=== PATIENT | female | born 1995 | race Caucasian/White ===

== ENCOUNTER 2019-01-13 18:08 | Inpatient (IN) | payer OTHER ==
[2019-01-13 18:56] VITALS: BMI 28.2
--- NOTE | 2019-01-13 19:23 | HP ---
COWS - Scale Resting Pulse: 0= [place] 80 or Below Sweatin= Chills/Flushing Restless Observation: 1= Difficult to Sit Still Pupil Size: 0= Normal to Room Light Bone or Joint Aches: 1= Mild Discomfort Runny Nose/ Eye Tearin= Runny Nose/Eyes GI Upset > 30mins: 3= Vomiting/Diarrhea (x 4) Tremor Observation: 1= Tremor [place], Not Seen Yawning Observation: 1= 1-2x During Session Anxiety or Irritability: 2=Irritable/Anxious Goose Flesh Skin: 0=Smooth Skin COWS Score: 12 CIWA Score - Admission Criteria OASAS Guidelines: Admission for Medically Managed Detox: Requires at least one of the followin. CIWA greater than 12 2. Seizures within the past 24 hours 3. Delirium tremens within the past 24 hours 4. Hallucinations within the past 24 hours 5. Acute intervention needed for co occurring medical disorder 6. Acute intervention needed for co occurring psychiatric disorder 7. Severe withdrawal that cannot be handled at a lower level of care (continued vomiting, continued diarrhea, abnormal vital signs) requiring intravenous medication and/or fluids 8. Admission ROS [facility] Chief Complaint: heroin withdrawal symptoms Allergies/Adverse Reactions: Allergies Allergy/AdvReac Type Severity Reaction Status Date / Time No Known Drug Allergies Allergy Verified 01/13/19 18:47 SEAFOOD Allergy Severe Difficulty Uncoded 01/13/19 18:47 Breathing History of Present Illness: 23 yo female with hx heroin (nasal) and marijuana dependence is here seeking detox, reports attempted treatment at [facility] in the past once, but left AMA. Reports has been using heroin for about four years, currently using 25-30 bags, last use this morning. PMHX: Asthma Psych: bipolar, schizophrenia, ADHD ( non-compliant with treatment) Denies SI/HI Hx suicide attempt x3, with last attempt February 2017. Denies hx of seizures, blackouts, overdose. Exam Limitations: No Limitations - Ebola screening Have you traveled outside of the country in the last 21 days: No (N) Have you had contact with anyone from an Ebola affected area: No Do you have a fever: No - Review of Systems Constitutional: Chills, Changes in sleep, Unintentional Wgt. Loss (70 lbs in past four months) EENT: reports: Tearing, Nose Congestion Respiratory: reports: Cough, Other (SOB when nodding out from heroin use) GI: reports: Nausea, Poor Appetite, Poor Fluid Intake, Vomiting, Abdominal cramping : reports: No Symptoms Reported Musculoskeletal: reports: Back Pain Integumentary: reports: Pruritus Neuro: reports: No Symptoms reported Endocrine: reports: Increased Thirst Hematology: reports: No Symptoms Reported Psychiatric: reports: Orientated x3, Anxious Other Systems: Reviewed and Negative Patient History - Patient Medical History Hx Anemia: No Hx Asthma: Yes Hx Chronic Obstructive Pulmonary Disease (COPD): No Hx Cancer: No Hx Cardiac Disorders: No Hx Congestive Heart Failure: No Hx Hypertension: No Hx Hypercholesterolemia: No Hx Pacemaker: No HX Cerebrovascular Accident: No Hx Seizures: No Hx Dementia: No Hx Diabetes: No Hx Gastrointestinal Disorders: No Hx Liver Disease: No Hx Genitourinary Disorders: No Hx Sexually Transmitted Disorders: Yes (gonorrhea and chlamydia ) Hx Renal Disease (ESRD): No Hx Thyroid Disease: No Hx Human Immunodeficiency Virus (HIV): No Hx Hepatitis C: No Hx Depression: Yes Hx Suicide Attempt: Yes (Hx suicide attempt x3, with last attempt February 2017. ) Hx Bipolar Disorder: Yes Hx Schizophrenia: Yes - Patient Surgical History Past Surgical History: No - PPD History Previous Implant?: No - Reproductive History Patient is a Female of Child Bearing Age (11 -55 yrs old): Yes Last Menstrual Period: 09/28/18 Patient : No - Smoking Cessation Smoking history: Current every day smoker Have you smoked in the past 12 months: Yes Aproximately how many cigarettes per day: 20 Hx Chewing Tobacco Use: No Initiated information on smoking cessation: Yes 'Breaking Loose' booklet given: 01/13/19 - Substance & Tx. History Hx Alcohol Use: No Hx Substance Use: No Substance Use Type: Heroin Hx Substance Use Treatment: Yes ([facility] left AMA after 24 hours ) - Substances abused Heroin Substance route: Inhalation Frequency: Daily Amount used: 25-30 BAGS Age of first use: 20 Date of last use: 01/13/19 Marijuana/Hashish Substance route: Smoking Frequency: Daily Amount used: 7-8 BLUNTS Age of first use: 12 Date of last use: 01/12/19 Family Disease History - Family Disease History Family History: Denies Admission Physical Exam BHS - Vital Signs Vital Signs: Vital Signs - 24 hr 01/13/19 18:41 Temperature 98.6 F Pulse Rate 68 Respiratory 18 Rate Blood Pressure 114/59 L - Physical General Appearance: Yes: Nourished, Disheveled, Mild Distress, Sweating, Anxious HEENTM: Yes: EOMI, Hearing grossly Normal, Normal ENT Inspection, Pharynx Normal , Other (dry mucous membranes) Respiratory: Yes: Chest Non-Tender, Lungs Clear, No Respiratory Distress, No Accessory Muscle Use, Wheezing Neck: Yes: Within Normal Limits Breast: Yes: Breast Exam Deferred Cardiology: Yes: Regular Rhythm, Murmur Abdominal: Yes: Normal Bowel Sounds, Non Tender, Flat, Soft Genitourinary: Yes: Within Normal Limits Back: Yes: Normal Inspection Musculoskeletal: Yes: full range of Motion, Gait Steady, Pelvis Stable, Back pain Extremities: Yes: Normal Capillary Refill, Normal Inspection, Normal Range of Motion, Non-Tender 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: 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: 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, Fully Oriented, Alert, Motor Strength 5/5, Depressed Affect Integumentary: Yes: Normal Color, Warm, Diaphoresis Lymphatic: Yes: Within Normal Limits - Diagnostic (1) Opioid dependence with withdrawal Current Visit: Yes Status: Acute (2) Nicotine dependence Current Visit: Yes Status: Acute Qualifiers: Nicotine product type: cigarettes (3) Asthma Current Visit: Yes Status: Acute Qualifiers: Asthma severity: mild Asthma persistence: intermittent Asthma complication type: uncomplicated Qualified Code(s): J45.20 - Mild intermittent asthma, uncomplicated (4) Wheezing Current Visit: Yes Status: Acute (5) Cannabis dependence Current Visit: Yes Status: Acute Cleared for Admission S - Detox or Rehab [facility] Level of Care: Medically Managed Detox Regimen/Protocol: Methadone Breathalyzer - Breathalyzer Breathalyzer: 0 POC Urine test - Test device test lot number: [id number] Expiration date: 08/28/20 - Control test control: Yes - Result Urine Test Results: Negative - NO line present Urine Drug Screen - Test Device Lot number: [id number] Expiration date: 08/28/20 - Control Is test valid?: Yes - Results Drug screen NEGATIVE: Yes Urine drug screen results: THC-Marijuana, FEN-Fentanyl, MOP-Opiates, MTD- Methadone Inpatient Rehab Admission - Rehab Decision to Admit Inpatient rehab admission?: No
[2019-01-13] MEDS ORDERED: BISMUTH SUBSALICYLATE 524 MG/30 ML UD PO PRN (19:36)
[2019-01-13] MEDS ORDERED: ALBUTEROL SO4 8 GM HFA INHALER IH PRN (19:36)
[2019-01-13] MEDS ORDERED: P-EPHED 60MG/TRIPROLIDI 2.5MG TABLET PO PRN (19:36)
[2019-01-13] MEDS ORDERED: MAGNESIUM CITRATE 300 ML BOTTLE PO PRN (19:36)
[2019-01-13] MEDS ORDERED: MAGNESIUM HYDROX 2400MG/30ML ORAL SUSPENSION 30 ML CUP PO PRN (19:36)
[2019-01-13] MEDS ORDERED: cloNIDine HCL 0.1 MG TABLET PO PRN (19:36)
[2019-01-13] MEDS ORDERED: ONDANSETRON *ODT* 4 MG TABLET SL PRN (19:36)
[2019-01-13] MEDS ORDERED: MAG HYDROX/AL HYDROX/SIMETH 30 ML UNIT-DOSE CUP PO PRN (19:36)
[2019-01-13] MEDS ORDERED: MELATONIN 5 MG TABLETS PO PRN (19:36)
[2019-01-13] MEDS ORDERED: MENTHOL/PHENOL 1 EACH UD MM PRN (19:36)
[2019-01-13] MEDS ORDERED: IBUPROFEN 400 MG TABLET (FP) PO PRN (19:36)
[2019-01-13] MEDS ORDERED: METHOCARBAMOL 500 MG TABLET PO PRN (19:36)
[2019-01-13] MEDS ORDERED: ACETAMINOPHEN 325 MG TABLET (FP) PO PRN ×2 (19:36)
[2019-01-13] MEDS ORDERED: guaiFENesin 200 MG/10 ML 10 ML UNIT-DOSE CUPS PO PRN (19:36)
[2019-01-13] MEDS ORDERED: ALBUTEROL SO4 0.083% IH SOL 2.5 MG/3 ML VIAL.NEB. NEB PRN (19:41)
[2019-01-13] MEDS ORDERED: QUEtiapine FUMARATE 50 MG TABLET PO ONE (22:00)
[2019-01-13] MEDS ORDERED: diazePAM 5 MG TABLET PO SCH (22:00)
[2019-01-13] MEDS: THIAMINE HCL 100 MG TABLET (FP) PO SCH (22:30)
[2019-01-13] MEDS ORDERED: METHADONE HCL 10 MG TABLET (FOR DETOX USE ONLY) PO ONE (23:00)
[2019-01-14] MEDS: NICOTINE POLACRILEX 2 MG GUM BUC PRN ×4 (08:49→19:44)
[2019-01-14] MEDS ORDERED: METHADONE HCL 10 MG TABLET (FOR DETOX USE ONLY) PO ONE (10:00)
[2019-01-14] MEDS: diazePAM 5 MG TABLET PO PRN ×2 (10:32→21:39)
[2019-01-14] MEDS: PRENATAL VITAMINS W/ FOLIC ACID TABLET (FP) PO SCH (10:32)
[2019-01-14] MEDS: NICOTINE 14 MG/24 HOURS TOPICAL PATCH TD SCH (10:33)
[2019-01-14 10:56] LABS: HEMOGLOBIN 11.9 GM/dL (10.7-15.3); MCH 30.6 pg (25.7-33.7); MCHC 34.1 g/dl (32.0-36.0); MEAN CELL VOLUME 89.8 fl (80-96); MEAN PLT VOLUME 7.7 fl (7.5-11.1); PLATELET COUNT 255 K/MM3 (134-434); RDW 14.4 % (11.6-15.6); WHITE BLOOD COUNT 4.9 K/mm3 (4.0-10.0)
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
[2019-01-14] MEDS: QUEtiapine FUMARATE 50 MG TABLET PO SCH (12:10)
--- NOTE | 2019-01-14 12:16 | EKG ---
Test Reason : Blood Pressure : / mmHG Vent. Rate : 063 BPM Atrial Rate : 063 BPM P-R Int : 154 ms QRS Dur : 092 ms QT Int : 412 ms P-R-T Axes : 038 049 037 degrees QTc Int : 421 ms NORMAL SINUS RHYTHM NORMAL ECG NO PREVIOUS ECGS AVAILABLE Confirmed by CHANNING MCGARRY MD ([id number]) on 01/14/2019 12:16:31 PM Referred By: Confirmed By:CHANNING MCGARRY MD
[2019-01-14 12:22] LABS: ALBUMIN 3.2 g/dl (3.4-5.0); ALK PHOS 56 U/L (45-117); ANION GAP 5 MMOL/L (8-16); BILIRUBIN,TOTAL 0.4 mg/dL (0.2-1); BLOOD UREA NITROGEN 6 mg/dL (7-18); CALCIUM 8.2 mg/dL (8.5-10.1); CHLORIDE 107 mmol/L (98-107); CO2 28 mmol/L (21-32); CREATININE 0.5 mg/dL (0.55-1.3); GLUCOSE,RANDOM 79 mg/dL (74-106); POTASSIUM 4.1 mmol/L (3.5-5.1); SGOT/AST 18 U/L (15-37); SGPT/ALT 14 U/L (13-61); SODIUM 141 mmol/L (136-145); TOT PROT 6.1 g/dl (6.4-8.2)
--- NOTE | 2019-01-14 13:12 | PN ---
BHS COWS - Scale Resting Pulse: 0= [place] 80 or Below Sweatin= Chills/Flushing Restless Observation: 1= Difficult to Sit Still Pupil Size: 0= Normal to Room Light Bone or Joint Aches: 1= Mild Discomfort Runny Nose/ Eye Tearin= Nasal Congestion GI Upset > 30mins: 1= Stomach Cramp Tremor Observation of Outstretched Hands: 1= Tremor [place], Not Seen Yawning Observation: 1= 1-2x During Session Anxiety or Irritability: 2=Irritable/Anxious Goose Flesh Skin: 0=Smooth Skin COWS Score: 9 BHS Progress Note (SOAP) Subjective: report anxious because lack of psychotropic medication trouble sleep at night poor concentration Objective: 01/14/19 13:10 Vital Signs Temperature 96.6 F L 01/14/19 09:45 Pulse Rate 68 01/14/19 09:45 Respiratory Rate 18 01/14/19 09:45 Blood Pressure 101/56 L 01/14/19 09:45 O2 Sat by Pulse Oximetry (%) Laboratory Last Values WBC 4.9 K/mm3 (4.0-10.0) 01/14/19 07:00 RBC 3.90 M/mm3 (3.60-5.2) 01/14/19 07:00 Hgb 11.9 GM/dL (10.7-15.3) 01/14/19 07:00 Hct 35.0 % (32.4-45.2) 01/14/19 07:00 MCV 89.8 fl (80-96) 01/14/19 07:00 MCH 30.6 pg (25.7-33.7) 01/14/19 07:00 MCHC 34.1 g/dl (32.0-36.0) 01/14/19 07:00 RDW 14.4 % (11.6-15.6) 01/14/19 07:00 Plt Count 255 K/MM3 (134-434) 01/14/19 07:00 MPV 7.7 fl (7.5-11.1) 01/14/19 07:00 Sodium 141 mmol/L (136-145) 01/14/19 07:00 Potassium 4.1 mmol/L (3.5-5.1) 01/14/19 07:00 Chloride 107 mmol/L (98-107) 01/14/19 07:00 Carbon Dioxide 28 mmol/L (21-32) 01/14/19 07:00 Anion Gap 5 MMOL/L (8-16) L 01/14/19 07:00 BUN 6 mg/dL (7-18) L 01/14/19 07:00 Creatinine 0.5 mg/dL (0.55-1.3) L 01/14/19 07:00 Creat Clearance w eGFR 151.58 (>60) 01/14/19 07:00 Random Glucose 79 mg/dL (74-106) 01/14/19 07:00 Calcium 8.2 mg/dL (8.5-10.1) L 01/14/19 07:00 Total Bilirubin 0.4 mg/dL (0.2-1) 01/14/19 07:00 AST 18 U/L (15-37) 01/14/19 07:00 ALT 14 U/L (13-61) 01/14/19 07:00 Alkaline Phosphatase 56 U/L (45-117) 01/14/19 07:00 Total Protein 6.1 g/dl (6.4-8.2) L 01/14/19 07:00 Albumin 3.2 g/dl (3.4-5.0) L 01/14/19 07:00 RPR Titer Nonreactive (NONREACTIVE) 01/14/19 07:00 lab noted Assessment: 01/14/19 13:12 withdrawal sx 01/14/19 13:12 schizophrenia Plan: continue detox seroquel
[2019-01-14] MEDS ORDERED: hydrOXYzine PAMOATE 50 MG CAPSULE (FP) PO PRN (19:57)
[2019-01-14] MEDS: THIAMINE HCL 100 MG TABLET (FP) PO SCH (21:39)
[2019-01-14] MEDS ORDERED: QUEtiapine FUMARATE 100 MG TABLET (FP) PO SCH (22:00)
[2019-01-15 09:30] VITALS: BP 101/64; PULSE 71; TEMP 96.9
[2019-01-15] MEDS ORDERED: diazePAM 5 MG TABLET PO SCH (10:00)
[2019-01-15] MEDS ORDERED: METHADONE HCL 10 MG TABLET (FOR DETOX USE ONLY) PO ONE (10:00)
[2019-01-15] MEDS: NICOTINE 14 MG/24 HOURS TOPICAL PATCH TD SCH (10:47)
[2019-01-15] MEDS: PRENATAL VITAMINS W/ FOLIC ACID TABLET (FP) PO SCH (10:47)
[2019-01-15] MEDS: QUEtiapine FUMARATE 50 MG TABLET PO SCH (10:47)
[2019-01-15] MEDS: NICOTINE POLACRILEX 2 MG GUM BUC PRN (10:48)
--- NOTE | 2019-01-15 13:30 | PN ---
BHS COWS - Scale Resting Pulse: 0= [place] 80 or Below Sweatin= No chills or Flushing Restless Observation: 0= Sits Still Pupil Size: 0= Normal to Room Light Bone or Joint Aches: 1= Mild Discomfort Runny Nose/ Eye Tearin= Nasal Congestion GI Upset > 30mins: 1= Stomach Cramp Tremor Observation of Outstretched Hands: 1= Tremor [place], Not Seen Yawning Observation: 0= None Anxiety or Irritability: 1=Feels Anxious/Irritable Goose Flesh Skin: 0=Smooth Skin COWS Score: 5 BHS Progress Note (SOAP) Subjective: pt states doing well with detox protocol O: Vital Signs - 24 hr 01/14/19 01/14/19 01/14/19 13:46 18:16 21:37 Temperature 97.2 F L 98.6 F 97.7 F Pulse Rate 69 66 64 Respiratory 18 18 18 Rate Blood Pressure 104/61 105/62 108/77 01/15/19 01/15/19 01/15/19 00:30 03:30 06:11 Temperature 97.6 F Pulse Rate 69 Respiratory 18 18 16 Rate Blood Pressure 97/57 L 01/15/19 01/15/19 06:30 09:29 Temperature 96.9 F L Pulse Rate 71 Respiratory 18 18 Rate Blood Pressure 101/64 Laboratory Tests 01/14/19 01/14/19 01/14/19 07:00 07:00 07:00 WBC 4.9 RBC 3.90 Hgb 11.9 Hct 35.0 MCV 89.8 MCH 30.6 MCHC 34.1 RDW 14.4 Plt Count 255 MPV 7.7 Sodium 141 Potassium 4.1 Chloride 107 Carbon Dioxide 28 Anion Gap 5 L BUN 6 L Creatinine 0.5 L Creat Clearance w eGFR 151.58 Random Glucose 79 Calcium 8.2 L Total Bilirubin 0.4 AST 18 ALT 14 Alkaline Phosphatase 56 Total Protein 6.1 L Albumin 3.2 L RPR Titer Nonreactive low protien, BUN a/p: continue heroin detox protocol- pt would like to try abstinence after detox is completed, does not want methadone/suboxone MAT
--- NOTE | 2019-01-15 14:48 | DS ---
[facility] Detox Discharge Summary Admission Date: 01/13/19 Discharge Date: 01/15/19 - History Present History: Opioid Dependence Pertinent Past History: Pt leaving a bit early from opioid detox- pt was angry and demanding to leave- states that she does not think she is being treated well. d/w pt the importance of follow up methadone/suboxone treatment for her opioid use disorder. - Physical Exam Results Vital Signs: Vital Signs Temperature 96.9 F L 01/15/19 09:29 Pulse Rate 71 01/15/19 09:29 Respiratory Rate 18 01/15/19 09:29 Blood Pressure 101/64 01/15/19 09:29 O2 Sat by Pulse Oximetry (%) - Treatment Hospital Course: Detox Protocol Followed, Detoxed Safely, Responded well - Medication Discharge Medications: Ambulatory Orders Albuterol Sulfate Inhaler - [Ventolin Hfa Inhaler -] 2 inh PO Q4H PRN 01/13/19 Quetiapine Fumarate [Seroquel -] 50 mg PO HS 01/13/19
[2019-01-16] MEDS ORDERED: diazePAM 5 MG TABLET PO SCH (06:00)
[2019-01-16] MEDS ORDERED: METHADONE HCL 10 MG TABLET (FOR DETOX USE ONLY) PO ONE (10:00)
[2019-01-17] MEDS ORDERED: METHADONE HCL 5 MG TABLET (FOR DETOX USE ONLY) PO ONE (06:00)
== END 2019-01-15 15:01 | disposition home or self-care (01) | DRG 776 ==
LOC: YASAS 18:08 → Y3N 19:50
PROVIDERS: ADMIT Surgery; ATTEND Surgery
PROC: HZ2ZZZZ Detoxification Services for Substance Abuse Treatment (ICD-10-PCS; principal; 2019-01-13)
DX: F12.20 Cannabis dependence, uncomplicated (principal); F17.210 Nicotine dependence, cigarettes, uncomplicated; F39 Unspecified mood [affective] disorder; F25.9 Schizoaffective disorder, unspecified; F90.9 Attention-deficit hyperactivity disorder, unspecified type; J45.909 Unspecified asthma, uncomplicated; R01.1 Cardiac murmur, unspecified; R06.2 Wheezing; Z91.013 Allergy to seafood; Z91.14 Patient's other noncompliance with medication regimen; Z91.5 Personal history of self-harm
CPT/HCPCS: 36415; 80053; 85027; 86593; 93005; 93010